=== PATIENT | female | born 1975 | race African-American/Black ===

== ENCOUNTER 2021-05-21 20:34 | Inpatient (IN) | payer MEDICAID ==
[~2021-05-21] VITALS: Ht 167.6 cm; Wt 89.4 kg
--- NOTE | 2021-05-21 21:26 | NUR ---
PATIENT REFUSED BLOOD DRAW.
--- NOTE | 2021-05-21 21:30 | NUR ---
PAT[facility] [address] [facility] [place] [facility] WITH C/O ROLLING AROUND NAKED, +ETOH NOTED. DENIES ANY PAIN. PATIENT IS A/O, RR EVEN AND UNLABORED NO SOB NOTED, PATIENT CONNECTED TO MONITOR.
[2021-05-21] MEDS ORDERED: HALOPERIDOL LACTATE INJ 5 MG/ML VIAL IM ONE (23:00)
[2021-05-21] MEDS ORDERED: HALOPERIDOL LACTATE INJ 5 MG/ML VIAL ONE (23:14)
[2021-05-22 00:05] LABS: BASOPHILS # (AUTO) 0.1 K/uL (0.0-0.2); BASOPHILS % (AUTO) 0.9 % (0.0-2.0); HEMATOCRIT 33 % (33-45); HEMOGLOBIN 10.9 g/dL (11.5-14.8); LYMPHOCYTES # (AUTO) 1.3 K/uL (0.8-4.8); LYMPHOCYTES % (AUTO) 13.8 % (20.0-44.0); MEAN CORPUSCULAR HGB CONC 33 g/dl (31.0-36.0); MEAN CORPUSCULAR VOLUME 87 fL (82-100); MONOCYTES # (AUTO) 1.1 K/uL (0.1-1.30); MONOCYTES % (AUTO) 11.6 % (2.0-12.0); NEUTROPHILS # (AUTO) 6.8 K/uL (1.8-8.9); NEUTROPHILS % (AUTO) 73.7 % (43.0-81.0); PLATELET COUNT (AUTO) 137 K/uL (150-450); WHITE BLOOD COUNT (AUTO) 9.2 K/uL (4.3-11.0)
[2021-05-22 00:22] LABS: CALCIUM, SERUM 8.5 mg/dL (8.5-10.1); CARBON DIOXIDE 21 mmol/L (21-32); CHLORIDE 105 mmol/L (98-107); GLUCOSE 204 mg/dL (74-106); SODIUM SERUM 139 mmol/L (136-145); UREA NITROGEN, BLOOD 18 mg/dL (7-18)
--- NOTE | 2021-05-22 00:34 | NUR ---
URINE COLLECTED AND SENT TO LAB.
[2021-05-22 00:35] LABS: ALANINE AMINOTRANSFERASE 42 U/L (12-78); ALBUMIN 3.1 g/dL (3.4-5.0); ALKALINE PHOSPHATASE 74 U/L (46-116); ASPARTATE AMINOTRANSFERASE 50 U/L (15-37); BILIRUBIN,DIRECT 0.1 mg/dL (0.0-0.2); BILIRUBIN,TOTAL 0.5 mg/dL (0.2-1.0); TOTAL PROTEIN, SERUM 6.9 g/dL (6.4-8.2)
[2021-05-22 00:36] LABS: ACETAMINOPHEN < 2 ug/ml (10-30); ALCOHOL, BLOOD < 3 mg/dL (0-0)
[2021-05-22 01:37] LABS: BILIRUBIN,URINE NEGATIVE (NEGATIVE); COLOR,URINE YELLOW (YELLOW); LEUKOCYTE ESTERASE ,URINE NEGATIVE (NEGATIVE); NITRITE, URINE NEGATIVE (NEGATIVE); PROTEIN,URINE TRACE mg/dl (NEGATIVE); UGLUCOSE >=1000 mg/dL (NEGATIVE); UROBILINOGEN,URINE 0.2 EU/dL (0.2)
--- NOTE | 2021-05-22 07:57 | NUR ---
THE PATIENT IS RECEIVED IN ER BED #14. THE PATIENT ALERT AND ORIENTED X3. DENIES PAIN. IN ROOM AIR AND DENIES SOB. RESPIRATION REGULAR AND UNLABORED. WILL CONTINUE TO MONITOR THE PATIENT.
--- NOTE | 2021-05-22 11:54 | NUR ---
THE PATIENT IS HAVING BREAKFAST. TOLERATES PROVIDED FOOD WELL.
--- NOTE | 2021-05-22 15:14 | NUR ---
FAXED CLINICALS AND HOLD OF PT TO [facility].
[2021-05-22] MEDS ORDERED: TEMAZEPAM 15 MG CAPSULE PO PRN ×2 (17:00→18:15)
[2021-05-22] MEDS ORDERED: Z GUARD REMEDY 2 OZ OINT TP PRN ×2 (17:00→18:15)
[2021-05-22] MEDS ORDERED: MAGNESIUM HYDROXIDE 30 ML UDC PO PRN ×2 (17:00→18:15)
[2021-05-22] MEDS ORDERED: ONDANSETRON HCL/PF 4 MG/2 ML VIAL IVP PRN ×2 (17:00→18:15)
[2021-05-22] MEDS ORDERED: ACETAMINOPHEN 325 MG TABLET PO PRN (17:00)
[2021-05-22] MEDS ORDERED: LORAZEPAM 1 MG TABLET PO PRN ×2 (17:00→18:15)
[2021-05-22] MEDS ORDERED: HYDROCODONE/APAP 5/325MG TABLET PO PRN ×2 (17:00→18:15)
[2021-05-22] MEDS ORDERED: MAG HYDROX/AL HYDROX/SIMETH 30 ML UDC PO PRN ×2 (17:00→18:15)
[2021-05-22] MEDS ORDERED: MORPHINE SULFATE INJ 2 MG/ML DISP.SYRIN IV PRN ×2 (17:00→18:15)
[2021-05-22] MEDS ORDERED: INSULIN REGULAR, HUMAN 100 UNIT/ML 3 ML VIAL SQ PRN (17:30)
[2021-05-22] MEDS ORDERED: POTASSIUM CHLORIDE 20 MEQ TAB.PRT.SR PO ONE ×4 (17:30→22:30)
[2021-05-22] MEDS ORDERED: BLOOD SUGAR DIAGNOSTIC 1 EACH STRIP IN SCH (17:30)
[2021-05-22] MEDS ORDERED: DEXTROSE 50%-WATER 50 ML DISP.SYRIN IV PRN ×2 (17:30→18:15)
[2021-05-22] MEDS ORDERED: OLANZAPINE ZYDIS 5 MG TAB.RAPDIS PO SCH (17:30)
--- NOTE | 2021-05-22 17:42 | NUR ---
ROOM [facility]
--- NOTE | 2021-05-22 17:55 | NUR ---
REPORT GIVEN TO NURSE JOSE ALFREDO
--- NOTE | 2021-05-22 18:00 | NUR ---
THE PATIENT IS TRANSFERED TO ROOM 102 IN STABLE CONDITION AND PER POLICY.
--- NOTE | 2021-05-22 18:30 | NUR ---
RN NOTES RECEIVED PATIENT FROM ER AT THIS TIME. VITAL SIGNS STABLE BP: 133/80, HR 74, TEMP 98, PULSE OX 97% ROOM AIR, RR 18. SAFETY MEASURES IN PLACE WITH BED LOCKED AT LOW POSITION AND SIDE RAILS UP X2. WILL ENDORSE PLAN OF CARE TO ONCOMING SHIFT.
--- NOTE | 2021-05-22 19:30 | NUR ---
RN NOTES PT RESTING IN BED, EASILY AWAKENS TO STIMULI, A/0X2, VERBALLY RESPONSIVE WITH CONFUSION, ALSO NOTED TALKING/MUMBLING TO SELF. REALITY REORIENTATION PROVIDED. PT DX: L-WRIST FRACTURE. L-WRIST/HAND WITH CAST/IMMOBILIZER. PT DENIES ANY PAIN AT THIS TIME. RESPIRATIONS EVEN AND UNLABORED. ON ROOM AIR AND MARC. WELL. NO ACUTE DISTRESS NOTED. SAFETY MEASURES IN PLACE, BED IN LOWEST LOCKED POSITION, S/R UPX2, CALL LIGHT WITHIN REACH.
[2021-05-22 20:00] VITALS: BP 136/66
[2021-05-22] MEDS: BLOOD SUGAR DIAGNOSTIC 1 EACH STRIP IN SCH (21:52)
[2021-05-23] MEDS ORDERED: LORAZEPAM INJ 2 MG/ML VIAL IV ONE (03:30)
[2021-05-23 04:00] VITALS: BP 134/86
--- NOTE | 2021-05-23 04:03 | NUR ---
RN NOTE PT AWAKE, RESTLESS IN BED, VERBALIZES FEELING ANXIOUS. PT WITH ATIVAN 1MG PO ORDER BUT PT IS CURRENTLY NPO FOR PLANNED SURGERY IN AM. MARCELL NEWELL MADE AWARE WITH ORDER TO GIVE ATIVAN 1MG IVP X1. ORDER NOTED AND CARRIED OUT.
--- NOTE | 2021-05-23 06:30 | NUR ---
RN NOTE PT AWARE OF PLAN FOR L-WRIST ORIF TODAY, HOWEVER, SHE REFUSES TO SIGN ANY FORMS AT THIS TIME, SAYING "IT'S AGAINST MY BELIEFS" PT ALSO WITH GRANDIOSE DELUSIONS, SAYING, "I AM PAL[place] DEISY BUCK" AND CONTINUES TO MUMBLE TO HERSELF. INFORMED OR STAFF, SPOKE TO
[2021-05-23] MEDS: BLOOD SUGAR DIAGNOSTIC 1 EACH STRIP IN SCH ×4 (06:32→22:56)
[2021-05-23] MEDS: INSULIN REGULAR, HUMAN 100 UNIT/ML 3 ML VIAL SQ PRN ×3 (06:32→22:58)
--- NOTE | 2021-05-23 07:10 | NUR ---
RN CLOSING NOTE PT RESTING IN BED, EASILY AWAKENS TO STIMULI, VERBAL AND ABLE TO MAKE NEEDS KNOWN. SHE DENIES PAIN AT THIS TIME. L-WRIST IS IMMOBILIZED WITH CAST. IV SITE ON R-AC INTACT/PATENT AND FLUSHES WELL. NPO POST-MIDNIGHT OBSERVED. PT IN NO ACUTE DISTRESS. SAFETY MEASURES MAINTAINED. ENDORSED TO NEXT SHIFT NURSE.
[2021-05-23] MEDS ORDERED: PANTOPRAZOLE 40 MG TABLET.DR PO SCH (07:30)
[2021-05-23] MEDS ORDERED: ANESTHESIA TRAY IN PYXIS 1 EA TRAY MC ONE (07:33)
[2021-05-23] MEDS: PANTOPRAZOLE 40 MG TABLET.DR PO SCH (07:36)
[2021-05-23] MEDS: OLANZAPINE ZYDIS 5 MG TAB.RAPDIS PO SCH ×2 (07:37→17:17)
--- NOTE | 2021-05-23 07:42 | NUR ---
NURSE OPENING NOTE RECEIVE REPORT FROM OUT GOING NURSE. PATIENT CAME IN FOR LEFT WRIST INJURY. ALL CONSENT SIGNED FOR SURGERY. PATIENT. PATIENT IS AMBULATORY. PATIENT PRESENT WITH BILATERAL EYES/FACE ECCHYMOSIS SAFETY MEASURE IN PLACE. BED ON THE LOWEST POSITION WITH HOB ELEVATED AND 3 SIDE RAIL UP. CALL LIGHT WITHIN REACH WILL CONTINUE TO MONITOR.
--- NOTE | 2021-05-23 07:57 | NUR ---
NURSE NOTE. PATIENT WAS PICKED UP FOR SURGERY (ORIF) Addendum: 05/23/21 at 0759 by STEPH RODRIGUEZ RN ALL CONSENT SIGNED. PROCEDURE, BLOOD TRANSFUSION, AND ANESTHESIA CONSENT.
[2021-05-23] MEDS ORDERED: HYDROMORPHONE INJ 2 MG/ML DISP.SYRIN ONE (08:17)
[2021-05-23] MEDS ORDERED: MIDAZOLAM HCL 2 MG/2ML VIAL ONE (08:17)
[2021-05-23] MEDS ORDERED: FAMOTIDINE/PF INJ 20 MG/2 ML VIAL IV ONE (08:22)
[2021-05-23] MEDS ORDERED: IV NS 0.9% 1,000 ML IV SCH (11:30)
[2021-05-23] MEDS ORDERED: HYDROCODONE/APAP 10/325MG TABLET PO PRN (11:30)
[2021-05-23] MEDS ORDERED: DOCUSATE SODIUM 250 MG CAPSULE PO PRN (11:30)
[2021-05-23] MEDS ORDERED: HYDROCODONE/APAP 5/325MG TABLET PO PRN (11:30)
[2021-05-23] MEDS ORDERED: ONDANSETRON HCL/PF 4 MG/2 ML VIAL IVP PRN (11:30)
[2021-05-23] MEDS: IV NS 0.9% 1,000 ML IV PRN ×2 (11:49→21:12)
[2021-05-23 12:00] VITALS: BP 145/74
[2021-05-23 12:59] LABS: IRON, SERUM 42 ug/dl (50-175); TOTAL IRON BINDING CAPACITY 262 ug/dl (250-450)
[2021-05-23 13:13] LABS: FERRITIN 194 ng/mL (8-388)
[2021-05-23] MEDS: ANCEF 1 GM/50 ML D5W IV SCH (17:18)
--- NOTE | 2021-05-23 19:00 | NUR ---
RN OPENING NOTES RECEIVED REPORT FROM OUTGOING NURSE, PATIENT IN BED A/O X 2-3 ABLE TO MAKE NEEDS KNOWN. NO SIGNS OF SOB AND DISCOMFORT AT THIS TIME, S/P ORIF ON L WRIST, NO BLEEDING, NO SWELLING NOTED, ELEVATED WITH PILLOW. WITH IV ACCESS ON R AC G# 20 FLUSHES WELL. WITH ONGOING IVF OF 0.9 NS @125CC/HR. SAFETY PRECAUTION IN PLACE AT ALL TIMES, HOB ELEVATED, BED ON LOWEST POSITION AND LOCKED, CALL LIGHT WITHIN REACH. WILL CONTINUE TO MONITOR CLOSELY.
--- NOTE | 2021-05-23 19:31 | NUR ---
NURSE CLOSING NOTE PATIENT ADMITTING DX: LEFT-WRIST FRACTURE. ON MEDSURG MONITORING. RAPID COVID IS NEGATIVE. A/O X2-3. NO BOWEL MOVEMENT. PATIENT IS AMBULATORY BUT REMAIN IN BED THROUGHOUT THE DAY. BILATERAL EYES AND FACE ECCHYMOSIS. FALL RISK, BED ALARM ON. REGULAR DIET. RAC IV 20 RUNNING NA@125ML/HR. SAFETY MEASURE IN PLACE BED ON THE LOWEST POSITION WITH HOB ELEVATED. 3 SIDE RAIL UP. WILL CONTINUE TO MONITOR AND GIVE REPORT TO ON COMING NURSE.
[2021-05-23 20:00] VITALS: BP 103/64
--- NOTE | 2021-05-23 22:00 | NUR ---
BLOOD SUGAR 138, PATIENT IS COMFORTABLE NO COMPLAIN OF PAIN AT THIS TIME. WILL CONTINUE TO MONITOR.
[2021-05-24] MEDS: ANCEF 1 GM/50 ML D5W IV SCH (01:03)
[2021-05-24] MEDS: ACETAMINOPHEN 325 MG TABLET PO PRN (01:54)
[2021-05-24 04:00] VITALS: BP 125/64
--- NOTE | 2021-05-24 06:37 | NUR ---
RN CLOSING NOTES PATIENT IN BED ORIENTED X3 ABLE TO MAKE NEEDS KNOWN. WITH IV ACCESS ON R AC G#20 PATENT WITH ONGOING IVF OF PNS @125 CC/HR. S/P ORIF ON L WRIST NO BLEEDING NOTED, ELEVATED WITH PILLOW. NO SOB NOTED AT THIS TIME. NO PAIN NOTED. ALL DUE MEDS GIVEN ORDERED. NO SIGNIFICANT CHANGES IN CONDITION THIS SHIFT. KEPT CLEAN AND DRY AT ALL TIMES. SAFETY PRECAUTION IN PLACE, HOB ELEVATED, BED ON LOWEST POSITION AND LOCKED. CALL LIGHT WITHIN REACH. ENDORSED
--- NOTE | 2021-05-24 07:18 | NUR ---
NURSE OPENING NOTE. RECEIVE REPORT FROM OUT GOING NURSE. PATIENT IN STABLE CONDITION. A/O X2-3. POST ORIF SURGERY. ELEVATE LEFT WRIST WITH PILLOW AND KEEP SPLINT CLEAN AND DRY. SAFETY MEASURE IN PLACE. BED ON THE LOWEST POSITION WITH HOB ELEVATED AND 3 SIDE RAIL UP. WILL CONTINUE TO MONITOR.
[2021-05-24] MEDS: PANTOPRAZOLE 40 MG TABLET.DR PO SCH (07:43)
[2021-05-24] MEDS: BLOOD SUGAR DIAGNOSTIC 1 EACH STRIP IN SCH ×4 (07:55→22:00)
[2021-05-24] MEDS: OLANZAPINE ZYDIS 5 MG TAB.RAPDIS PO SCH ×2 (08:22→17:06)
--- NOTE | 2021-05-24 10:48 | NUR ---
NURSE NOTE PATIENT REFUSE BLOOD DRAW FOR LAB
[2021-05-24 12:50] VITALS: BP 125/64
[2021-05-24 15:03] LABS: BASOPHILS # (AUTO) 0.1 K/uL (0.0-0.2); BASOPHILS % (AUTO) 1.1 % (0.0-2.0); EOSINOPHILS % (AUTO) 1.5 % (0.0-6.0); HEMATOCRIT 32 % (33-45); HEMOGLOBIN 10.8 g/dL (11.5-14.8); LYMPHOCYTES # (AUTO) 2.5 K/uL (0.8-4.8); LYMPHOCYTES % (AUTO) 29.8 % (20.0-44.0); MEAN CORPUSCULAR HGB CONC 34 g/dl (31.0-36.0); MEAN CORPUSCULAR VOLUME 87 fL (82-100); MONOCYTES # (AUTO) 0.6 K/uL (0.1-1.30); MONOCYTES % (AUTO) 7.5 % (2.0-12.0); NEUTROPHILS % (AUTO) 60.1 % (43.0-81.0); PLATELET COUNT (AUTO) 225 K/uL (150-450); WHITE BLOOD COUNT (AUTO) 8.2 K/uL (4.3-11.0)
[2021-05-24 15:24] LABS: ALBUMIN 2.5 g/dL (3.4-5.0); BILIRUBIN,TOTAL 0.5 mg/dL (0.2-1.0); CALCIUM, SERUM 7.8 mg/dL (8.5-10.1); CREATININE 0.7 mg/dL (0.6-1.3); MAGNESIUM 1.8 mg/dL (1.8-2.4); PHOSPHORUS 2.3 mg/dL (2.5-4.9); POTASSIUM 3.6 mmol/L (3.5-5.1)
--- NOTE | 2021-05-24 17:58 | NUR ---
NURSE CLOSING NOTE. PATIENT IN STABLE CONDITION. ABLE TO AMBULATE TO RESTROOM. EAT WELL. DISCONTINUE IV HYDRATION PER ORDER OF PATIENT ABLE TO EAT AND DRINK. PATIENT REFUSES TO GIVE BLOOD FOR LAB WORK MULTIPLE TIMES. ABLE TO GET LAB DRAWN AT 14:50. PSYCH EVALUATION WAS DONE. WILL PRESCRIBE MEDS. PATIENT AWAIT DISCHARGE TO [facility] ONCE BED IS AVAILABLE. REPORT WAS GIVEN TO YESI FROM [facility]. PATIENT IS COMFORTABLE. SAFETY MEASURE IN PLACE. BED ON THE LOWEST POSITION WITH HOB ELEVATED. 3 SIDE RAIL UP. WILL CONTINUE TO MONITOR AND GIVE REPORT TO ON COMING NURSE.
--- NOTE | 2021-05-24 19:40 | NUR ---
RN NOTE RECEIVED PATIENT IN BED, ALERT AND ORIENTED X2-3. ABLE TO MAKE NEEDS KNOWN. ON ROOM AIR, NO S/S OF ACUTE RESPIRATORY DISTRESS. DENIES ANY PAIN OR DISCOMFORT AT THIS TIME. IV ACCESS ON RIGHT AC #20, SL. FLUSHED ASEPTICALLY. [facility] PLANNING [facility], DEMOLISHED 2001. BED LOCKED AND IN LOWEST POSITION. CALL LIGHT WITHIN REACH. ALL NEEDS ANTICIPATED.
[2021-05-24 20:00] VITALS: BP 123/72
--- NOTE | 2021-05-24 21:00 | NUR ---
RN NOTE SPOKE TO RASHIDA ([phone]) DECKHAND OYSTER DREDGE FROM [facility] IN REGARDS TO PATIENT'S D/C PLANNING. PER RASHIDA PATIENT WILL HAVE RE-EVALUATION IN AM BY DR. ROBERTO ([phone]). WILL ENDORSE TO AM SHIFT.
--- NOTE | 2021-05-24 22:34 | NUR ---
RN NOTE PATIENT REFUSED ACCUCHECK. STATED, "NO I DON'T WANT THAT ANYMORE, IM TIRED OF CHECKING MY BLOOD SUGAR." EXPLAINED RISKS AND BENEFITS, STILL STRONGLY REFUSED.
[2021-05-25 04:00] VITALS: BP 133/74
--- NOTE | 2021-05-25 06:39 | NUR ---
RN NOTE PATIENT RESTING IN BED. ON ROOM AIR, NO S/S OF ACUTE RESPIRATORY DISTRESS. IV ACCESS ON RIGHT AC #20 PATENT AND INTACT. LEFT WRIST KEPT CLEAN, DRY, AND ELEVATED. ALL NEEDS ATTENDED PROMPTLY. BED LOCKED AND IN LOWEST POSITION. CALL LIGHT WITHIN REACH. WILL ENDORSE TO AM SHIFT.
--- NOTE | 2021-05-25 07:17 | NUR ---
RN NOTE PATIENT IS IN BED WITH HOB AT SEMI FOWLERS POSITION. PATIENT IS ON ROOM AIR WITH NO SIGNS OF LABORED BREATHING. PATIENT IS AOX3. RAC IV ACCESS IS PATENT AND INTACT. BED IS LOCKED IN THE LOWEST POSITION, 3 GUARD RAILS RAISED, CALL HANEY WITHIN REACH, AND ALL HOSPITAL SAFETY PRECAUTIONS ARE BEING FOLLOWED. WILL CONTINUE TO MONITOR THROUGHOUT SHIFT.
[2021-05-25] MEDS: BLOOD SUGAR DIAGNOSTIC 1 EACH STRIP IN SCH ×4 (07:30→22:00)
[2021-05-25] MEDS: PANTOPRAZOLE 40 MG TABLET.DR PO SCH (08:01)
[2021-05-25] MEDS: OLANZAPINE ZYDIS 5 MG TAB.RAPDIS PO SCH (08:02)
--- NOTE | 2021-05-25 12:49 | NUR ---
dr. chris discharge pt.,spoke with social worker clinical they are working for placement,will continue to ff.up.
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
[2021-05-25 16:00] VITALS: BP 123/65
--- NOTE | 2021-05-25 16:37 | NUR ---
RN NOTE PATIENT REFUSING ACCU CHECK X3 TODAY. EDUCATED PATIENT ON IMPORTANCE OF ACCU CHECKS AND INSULIN ADHERENCE. PATIENT STILL REFUSED.
[2021-05-25] MEDS: ACETAMINOPHEN 325 MG TABLET PO PRN (17:15)
--- NOTE | 2021-05-25 18:40 | NUR ---
RN NOTE PATIENT IS IN BED WITH HOB AT SEMI FOWLERS POSITION. PATIENT IS ON ROOM AIR WITH NO SIGNS OF LABORED BREATHING. PATIENT IS AOX3. RAC IV ACCESS IS PATENT AND INTACT. BED IS LOCKED IN THE LOWEST POSITION, 3 GUARD RAILS RAISED, CALL HANEY WITHIN REACH, AND ALL HOSPITAL SAFETY PRECAUTIONS ARE BEING FOLLOWED. PATIENT REMAINED STABLE THROUGHOUT SHIFT. WILL ENDORSE TO HEADER MACHINE OPERATOR RN.
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
[2021-05-25 20:00] VITALS: BP 118/74
[2021-05-25] MEDS ORDERED: OLANZAPINE ZYDIS 5 MG TAB.RAPDIS PO SCH (22:00)
--- NOTE | 2021-05-25 22:30 | NUR ---
RN NOTES, PATIENT ENDORSED TO JOELLEN RN IN 3ER FLOOR, PATIENT ACCOMMODATED IN ROOM 313-2, AND ORIENTED TO ROOM AN SURROUNDINGS, A/O NO SOB/ACUTE DISTRESS, BELONGINGS TAKEN WITH THE PATIENT, AT ROOM AIR.
--- NOTE | 2021-05-25 23:42 | NUR ---
RN NOTES RECEIVED PT PATIENT NO SOB/ACUTE DISTRESS, BELONGINGS TAKEN WITH THE PATIENT, ON ROOM AIR.ALL NEEDS MET CALL LIGHT WITHIN REACH WILL CONTINUE TO MONITOR. Addendum: 05/25/21 at 2349 by JOELLEN MONROE RN PER ENDORSEMENT PT WILL BE DC TO BOARD AND CARE IN THE AM ARRANGED BY
[2021-05-26] VITALS: BP 107/62
[2021-05-26 00:04] VITALS: BP 107/62
--- NOTE | 2021-05-26 06:46 | NUR ---
RN NOTES PT PATIENT NO SOB/ACUTE DISTRESS, ON ROOM AIR.ALL NEEDS MET CALL LIGHT WITHIN REACH WILL ENDORSE CARE TO DAY SHIFT NURSE.
[2021-05-26] MEDS: BLOOD SUGAR DIAGNOSTIC 1 EACH STRIP IN SCH ×3 (07:28→17:32)
--- NOTE | 2021-05-26 07:30 | NUR ---
MS RN OPENING NOTES RECEIVED PATIENT IN BED, AWAKE, A&O X 4. NOT IN ANY FORM OF ACUTE DISTRESS NOTED. ON ROOM AIR TOLERATING WELL. IV ACCESS ON RAC G#20, PATENT AND FLUSHES WELL. NOTED WITH DRESSING ON LEFT WRIST, DRY AND INTACT. NO COMPLAINTS OF PAIN AT THIS TIME. SAFETY PRECAUTIONS IN PLACE: BED ON LOWEST LOCKED POSITION, SIDE RAILS UP X 2, CALL LIGHT WITHIN EASY REACH. WILL CONTINUE TO MONITOR ACCORDINGLY.
[2021-05-26] MEDS: PANTOPRAZOLE 40 MG TABLET.DR PO SCH (07:33)
[2021-05-26 08:00] VITALS: BP 127/75
[2021-05-26] MEDS: INSULIN REGULAR, HUMAN 100 UNIT/ML 3 ML VIAL SQ PRN ×2 (11:37→17:45)
--- NOTE | 2021-05-26 14:27 | NUR ---
RN NOTES FOLLOWED UP WITH CASE MANAGEMENT DEP'T REGARDING PLACEMENT. NO UPDATES YET. PER CM, THEY WILL LET US KNOW ONCE THERE IS AN UPDATE.
[2021-05-26 16:00] VITALS: BP 123/87
[2021-05-26] MEDS: ACETAMINOPHEN 325 MG TABLET PO PRN (16:14)
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
== END 2021-05-26 18:50 | DRG 315 ==
LOC: ER 20:39 → EDBD 20:39 → ER 05-22 18:01 → MEDSG1 05-22 18:07 → MED 05-25 22:00
PROVIDERS: ADMIT Nurse Practitioner Acute Care
PROC: 0PSJ04Z Reposition Left Radius with Internal Fixation Device, Open Approach (ICD-10-PCS; principal; 2021-05-23)
DX: S52.572A Other intraarticular fracture of lower end of left radius, initial encounter for closed fracture (principal); E88.09 Other disorders of plasma-protein metabolism, not elsewhere classified; F25.9 Schizoaffective disorder, unspecified; F29 Unspecified psychosis not due to a substance or known physiological condition; D64.9 Anemia, unspecified; S52.612A Displaced fracture of left ulna styloid process, initial encounter for closed fracture; S62.522A Displaced fracture of distal phalanx of left thumb, initial encounter for closed fracture; E87.6 Hypokalemia; Z20.822 Contact with and (suspected) exposure to COVID-19; Z59.00 Homelessness unspecified; F15.10 Other stimulant abuse, uncomplicated; I10 Essential (primary) hypertension; R73.9 Hyperglycemia, unspecified; F17.200 Nicotine dependence, unspecified, uncomplicated; E66.9 Obesity, unspecified; Z68.31 Body mass index [BMI] 31.0-31.9, adult; X58.XXXA Exposure to other specified factors, initial encounter; Y92.9 Unspecified place or not applicable; F41.9 Anxiety disorder, unspecified
CPT/HCPCS: 36415; 70450-TC; 70486-TC; 71045-TC; 72125-TC; 73060-TC; 73080-TC; 73090-TC; 73110; 73130-TC; 80048-TC; 80053-TC; 80076-TC; 82728-TC; 82962-TC; 83540-TC; 83735-TC; 84100-TC; 84132-TC; 84703-TC; 85025-TC; 87081-TC; 93307-TC; A4217; A4565; A6253; A6403; C1713; C9803; G0378; G0480; J0690; J1100; J1170; J1630; J1815; J1885; J2060; J2250; J2405; J2704; J3490; J7030; J7050; J7060; U0003